=== PATIENT | male | born 2000 | race Hispanic/Latino ===

== ENCOUNTER 2024-01-14 20:36 | Observation (INO) | payer BC, OTHER ==
[2024-01-14] MEDS ORDERED: FAMOTIDINE 20 MG/2 ML VIAL IV ONE (21:05)
[2024-01-14] MEDS ORDERED: ONDANSETRON 4 MG/2 ML VIAL ONE (21:05)
[2024-01-14] MEDS ORDERED: NA CHLORIDE 0.9% 1,000 ML ONE (21:05)
[2024-01-14 21:25] LABS: Absolute Basophils 0.1 K/uL (0-0.5); Absolute Eosinophils 0.1 K/uL (0-0.5); Absolute Lymphocytes (CBC) 1.5 K/uL (0.7-4.9); Absolute Monocytes 0.5 K/uL (0.1-1.3); Basophils % 0.8 % (0-1.3); Eosinophils % 0.9 % (0-4.4); Hematocrit 45.9 % (39.6-49.0); Hemoglobin 15.9 g/dL (13.6-17.9); Lymphocytes % 13.2 % (15.3-44.8); MCH 30.3 pg (27.0-35.0); MCHC 34.7 g/dL (32.0-36.0); MCV 87.3 fL (80-100); Monocytes % 4.1 % (3.3-12.3); Nucleated Red Blood Cells % 0.1 % (0-0); Platelets 234 thou/uL (152-406); RBC Red Blood Cell Count 5.26 M/uL (4.33-5.43)
[2024-01-14 21:26] LABS: Sqamous Epithelial <5 /HPF (None Seen); Urine Bacteria None Seen /HPF (<20); Urine Bilirubin NEGATIVE (Negative); Urine Blood Negative (Negative); Urine Clarity Clear (Clear); Urine Color Yellow (Yellow); Urine Culture Reflex Order NOT NEEDED; Urine Glucose NEGATIVE (Negative); Urine Ketones NEGATIVE (Negative); Urine Microscopic Reflex YN ORDER UMIC; Urine Mucus 2+ /HPF (None Seen); Urine Nitrite NEGATIVE (Negative); Urine Protein TRACE (Negative); Urine RBC <5 /HPF (None Seen); Urine Urobilinogen Normal (Normal); Urine WBC <5 /HPF (<5); Urine pH 6.5 (5.0-7.0)
[2024-01-14] MEDS ORDERED: KETOROLAC 30 MG/ML INJ ONE (21:35)
[2024-01-14 21:36] LABS: SARS-CoV-2 Antigen CONTROL BLUE LINE VIS/BG OK; SARS-CoV-2 Antigen Rapid Res Negative (Negative)
[2024-01-14] MEDS ORDERED: MORPHINE 4 MG/ML SYR ONE (21:36)
[2024-01-14 21:42] LABS: Albumin 4.3 g/dL (3.4-5.0); Albumin/Globulin Ratio 1.1 (1.1-1.8); Anion Gap 9.5 mEq/L (5.0-15.0); Bilirubin Total 0.5 mg/dL (0.2-1.0); Globulin 3.9 g/dL (2.3-3.5); Potassium 3.5 mEq/L (3.5-5.1); Protein, Total 8.2 g/dL (6.4-8.2)
--- NOTE | 2024-01-14 22:20 | RAD REPORT ---
EXAM DESCRIPTION: CT - Abdomen Pelvis W Contrast - 01/14/2024 9:51 pm CLINICAL HISTORY: Right lower abdominal pain COMPARISON: No comparisons TECHNIQUE: Thin cut axial CT imaging of the abdomen and pelvis was performed following intravenous a dministration of 95 mL Isovue 300. Multiplanar reformats were generated and reviewed. All CT scans are performed using dose optimization technique as appropriate and may include automated exposure control or mA/KV adjustment according to patient size. FINDINGS: No suspicious findings in the lung bases. The liver, spleen, adrenal glands, and pancreas show no suspicious findings. Gallbladder and biliary tree are also without suspicious finding. Symmetric renal function is seen with no hydronephrosis or suspicious renal mass. No dilated bowel loops. Loop of bowel containing hyperdense material measuring 1.3 cm in greatest mary iber is present in the right lower quadrant, possibly connected to the base of the appendix, demonstr ating mild adjacent fat stranding anteriorly, as best appreciated on axial image 53. No free air, chandni e fluid or inflammatory stranding. No hernia, mass or bulky lymphadenopathy. The urinary bladder is d ecompressed limiting evaluation. No suspicious bony findings. IMPRESSION: Mild inflammatory changes along a small local bowel in the right lower quadrant containi ng hyperdense material, possibly early acute appendicitis with numerous appendicoliths. The findings were communicated to Meaghan Rodriguez on 01/14/2024 at 22:17 hours.
--- NOTE | 2024-01-14 22:44 | ER ---
Nurse's Notes [facility] Name: Andrea Desouza Age: 23 yrs Sex: Male : 2000 Arrival Date: 01/14/2024 Time: 20:36 Bed 13 Private MD: Otoniel Naidu Diagnosis: Unspecified acute appendicitis Presentation: 01/13 20:53 Chief complaint: Patient states: Pt c/o "upset stomach" all day. Pt states he developed tl4 low abdominal pain and vomiting at approx 1600 that has gotten progressively worse. Pt denies fever/chills. Coronavirus screen: At this time, the client does not indicate any symptoms associated with coronavirus-19. Ebola Screen: No symptoms or risks identified at this time. Initial Sepsis Screen: Does the patient meet any 2 criteria? No. Patient's initial sepsis screen is negative. Does the patient have a suspected source of infection? No. Patient's initial sepsis screen is negative. Risk Assessment: Do you want to hurt yourself or someone else? Patient reports no desire to harm self or others. Onset of symptoms was January 14, 2024 at 08:00. 20:53 Method Of Arrival: Ambulatory tl4 20:53 Acuity: DIAMOND 3 tl4 Triage Assessment: 20:57 General: Appears uncomfortable, Behavior is cooperative. Pain: Complains of pain in tl4 abdomen. EENT: No deficits noted. No signs and/or symptoms were reported regarding the EENT system. Neuro: No deficits noted. Cardiovascular: Capillary refill < 3 seconds Patient's skin is warm and dry. Respiratory: Denies cough, shortness of breath. GI: Pt is actively vomiting Reports nausea, vomiting. : No deficits noted. No signs and/or symptoms were reported regarding the genitourinary system. Derm: No deficits noted. No signs and/or symptoms reported regarding the dermatologic system. Musculoskeletal: No deficits noted. No signs and/or symptoms reported regarding the musculoskeletal system. Historical: - Allergies: 20:56 No Known Allergies; tl4 - Home Meds: 20:56 None [Active]; tl4 - PMHx: 20:56 None; tl4 - PSHx: 20:56 knee surgery; finger surgery; Adenoid excision; tl4 - Immunization history:: Adult Immunizations unknown. - Social history:: Smoking status: Reported history of juuling and/or vaping. - Family history:: not pertinent. Screenin:13 [facility] ED Fall Risk Assessment (Adult) History of falling in the last 3 months, rv including since admission No falls in past 3 months (0 pts) Score/Fall Risk Level 0 - 2 = Low Risk Oriented to surroundings, Maintained a safe environment, Educated pt \\T\\ family on fall prevention, incl call for assistance when getting out of bed, Assessed \\T\\ reinforced patient's understanding of fall precautions. Abuse screen: Denies threats or abuse. Denies injuries from another. Nutritional screening: No deficits noted. Tuberculosis screening: No symptoms or risk factors identified. Assessment: 21:13 General: Appears comfortable, Behavior is calm, cooperative. Pain: Complains of pain in rv abdomen. Neuro: Level of Consciousness is awake, alert, obeys commands, Oriented to person, place, time, situation. Cardiovascular: Capillary refill < 3 seconds Patient's skin is warm and dry. Respiratory: Airway is patent Respiratory effort is even, unlabored. GI: Bowel sounds present X 4 quads. Abd is soft and non tender X 4 quads. Reports upper abdominal pain, nausea, vomiting. Derm: Skin is intact. Vital Signs: 20:53 BP 142 / 92; Pulse 71; Resp 18; Temp 98.6(TE); Pulse Ox 100% ; Weight 99.79 kg; Height tl4 5 ft. 10 in. ; Pain 7/10; 01/14 00:58 BP 121 / 76; Pulse 112; Resp 18; Temp 98; Pulse Ox 99% ; rv 01/13 20:53 Body Mass Index 31.57 (99.79 kg, 177.8 cm) tl4 01/13 20:53 Pain Scale: Adult tl4 Annette Coma Score: 00:58 Eye Response: spontaneous(4). Motor Response: obeys commands(6). Verbal Response: rv oriented(5). Total: 15. 20:47 Eye Response: spontaneous(4). Motor Response: obeys commands(6). Verbal Response: sp4 oriented(5). Total: 15. ED Course: 01/13 20:40 Patient arrived in ED. mr 20:40 Otoniel Naidu MD is Private Physician. mr 20:41 Sree Gomez MD is Attending Physician. sp4 20:56 Triage completed. tl4 20:58 Arm band placed on right wrist. tl4 21:13 Hany Terrell, RN is Primary Nurse. rv 21:13 Patient has correct armband on for positive identification. Client placed on continuous rv cardiac and pulse oximetry monitoring. NIBP monitoring applied. 21:13 No provider procedures requiring assistance completed. rv 21:20 SARS RAPID Sent. kd3 21:20 Inserted saline lock: 20 gauge in right antecubital area, using aseptic technique. kd3 Blood collected. 21:20 Influenza Screen (a \\T\\ B) Sent. kd3 21:22 CBC with Diff Sent. kd3 21:22 CMP Sent. kd3 21:22 Lipase Sent. kd3 21:22 Urinalysis w/ reflexes Sent. kd3 21:22 Initial lab(s) drawn, by me, sent to lab. Urine collected: clean catch specimen, clear. kd3 21:22 COVID swab sent to lab. Flu and/or RSV swab sent to lab. kd3 21:52 CT Abd/Pelvis - IV Contrast Only In Process Unspecified. EDMS 22:43 Doug Fang MD is Hospitalizing Provider. sp4 01/14 00:59 Patient admitted, IV remains in place. rv Administered Medications: 01/13 21:20 Drug: Famotidine IVP 20 mg IVP once; dilute with 10 mL 0.9% NaCl; give over 2 minutes kd3 Route: IVP; Site: right antecubital; 21:22 Drug: NS 0.9% IV 1000 ml IV at 1 bolus Per protocol; 1000 mL bolus Route: IV; Rate: 1 kd3 bolus; Site: right antecubital; 21:22 Drug: Ondansetron IVP 4 mg IVP once; over 2 minutes Route: IVP; Site: right antecubital;kd3 21:40 Drug: Ketorolac IVP 30 mg IVP once Route: IVP; Site: right antecubital; rv 01/14 00:59 Follow up: Response: No adverse reaction; Marked relief of symptoms rv 01/13 21:41 Drug: morphine IVP or IV 8 mg IVP once over 4 mins Route: IVP; Infused Over: 4 mins; rv Site: right antecubital; 01/14 01:00 Follow up: Response: No adverse reaction; Marked relief of symptoms rv 01/13 23:09 Drug: Piperacillin-Tazobactam IVPB 3.375 grams IVPB once over 60 mins; (mix in NS 100 rv mL) Route: IVPB; Infused Over: 60 mins; Site: right antecubital; 23:51 Follow up: Response: No adverse reaction; IV Status: Completed infusion; IV Intake: rv 100ml 23:44 Drug: D5-1/2 NS with KCl IV 20 mEq/L 1000 ml IV at 125 ml/hr continuous Route: IV; rv Rate: 125 ml/hr; Site: right antecubital; 01/14 00:59 Follow up: IV Status: Infusion continued upon admission rv Medication: 01/13 21:13 VIS not applicable for this client. rv Intake: 23:51 IV: 100ml; Total: 100ml. rv Outcome: 22:43 Decision to Hospitalize by Provider. sp4 01/14 00:58 Admitted to Tele accompanied by tech, via wheelchair, room 430, Report called to rv admission papers, sbar, faxed to Claudia LAWSON. Condition: good Instructed on the need for admit, 01:00 Patient left the ED. rv Signatures: Dispatcher [employer] EDVT SilverSwati barragan, Reg Reg mr Hany Terrell RN RN rv Nicky Verduzco, RN RN kd3 Sree Gomez MD MD sp4 Tyler Steward RN RN tl4
--- NOTE | 2024-01-14 22:44 | EDPHYS ---
Physician Documentation [facility] Name: Andrea Desouza Age: 23 yrs Sex: Male : 2000 Arrival Date: 01/14/2024 Time: 20:36 Bed 13 Private MD: Otoniel Naidu ED Physician Sree Gomez HPI: 01/13 20:41 This 23 yrs old Male presents to ER via Unassigned with complaints of sp4 Abdominal Pain, Vomiting/Diarrhea. 01/14 20:47 23-year-old male presents for lower abdominal pain nausea vomiting diarrhea starting sp4 acutely today.. Historical: - Allergies: 01/13 20:56 No Known Allergies; tl4 - Home Meds: 20:56 None [Active]; tl4 - PMHx: 20:56 None; tl4 - PSHx: 20:56 knee surgery; finger surgery; Adenoid excision; tl4 - Immunization history:: Adult Immunizations unknown. - Social history:: Smoking status: Reported history of juuling and/or vaping. - Family history:: not pertinent. ROS: 01/14 20:47 Constitutional: Negative for fever, chills, and weight loss, positive nausea, positive sp4 vomiting, positive diarrhea, positive abdominal pain All other systems are negative, Exam: 20:47 Constitutional: This is a well developed, well nourished patient who is awake, alert, sp4 and in no acute distress. Head/Face: Normocephalic, atraumatic. Eyes: Pupils equal round and reactive to light, extra-ocular motions intact. Lids and lashes normal. Conjunctiva and sclera are not injected. Cornea within normal limits. Periorbital areas with no swelling, redness, or edema. ENT: Nares patent. No nasal discharge, no septal abnormalities noted. Tympanic membranes are normal and external auditory canals are clear. Oropharynx with no redness, swelling, or masses, exudates, or evidence of obstruction, uvula midline. Mucous membranes moist. Neck: Trachea midline, no thyromegaly or masses palpated, and no cervical lymphadenopathy. Supple, full range of motion without nuchal rigidity, or vertebral point tenderness. Chest/axilla: Normal chest wall appearance and motion. Nontender with no deformity. No lesions are appreciated. Cardiovascular: Regular rate and rhythm with a normal S1 and S2. No gallops, murmurs, or rubs. Normal PMI, no JVD. No pulse deficits. Respiratory: Lungs have equal breath sounds bilaterally, clear to auscultation and percussion. No rales, rhonchi or wheezes noted. No increased work of breathing, no retractions or nasal flaring. Abdomen/GI: Soft, with normal bowel sounds. No distension or tympany. Positive guarding and positive rebound the right lower abdominal quadrant. Positive tenderness right lower quadrant Back: No spinal tenderness. No costovertebral tenderness. Skin: Warm, dry with normal turgor. Normal color with no rashes, no lesions, and no evidence of cellulitis. MS/ Extremity: Pulses equal, no cyanosis. Neurovascular intact. Full, normal range of motion. Neuro: Awake and alert, GCS 15, oriented to person, place, time, and situation. Cranial nerves II-XII grossly intact. Motor strength 5/5 in all extremities. Sensory grossly intact. Psych: Awake, alert, with orientation to person, place and time. Behavior, mood, and affect are within normal limits Vital Signs: 01/13 20:53 BP 142 / 92; Pulse 71; Resp 18; Temp 98.6(TE); Pulse Ox 100% ; Weight 99.79 kg; Height tl4 5 ft. 10 in. ; Pain 7/10; 01/14 00:58 BP 121 / 76; Pulse 112; Resp 18; Temp 98; Pulse Ox 99% ; rv 01/13 20:53 Body Mass Index 31.57 (99.79 kg, 177.8 cm) tl4 01/13 20:53 Pain Scale: Adult tl4 [facility] Coma Score: 00:58 Eye Response: spontaneous(4). Motor Response: obeys commands(6). Verbal Response: rv oriented(5). Total: 15. 20:47 Eye Response: spontaneous(4). Motor Response: obeys commands(6). Verbal Response: sp4 oriented(5). Total: 15. MDM: 01/13 20:42 Patient medically screened. sp4 01/14 20:47 Differential diagnosis: Nonspecific abd pain, gastritis, cholecystitis, pancreatitis, sp4 appendicitis. Data reviewed: vital signs, nurses notes, old medical records, lab test result(s), radiologic studies, CT scan. 20:50 ED course: EXAM DESCRIPTION: CT - Abdomen Pelvis W Contrast - 01/14/2024 9:51 pm sp4 CLINICAL HISTORY: Right lower abdominal pain COMPARISON: No comparisons TECHNIQUE: Thin cut axial CT imaging of the abdomen and pelvis was performed following intravenous administration of 95 mL Isovue 300. Multiplanar reformats were generated and reviewed. All CT scans are performed using dose optimization technique as appropriate and may include automated exposure control or mA/KV adjustment according to patient size. FINDINGS: No suspicious findings in the lung bases. The liver, spleen, adrenal glands, and pancreas show no suspicious findings. Gallbladder and biliary tree are also without suspicious finding. Symmetric renal function is seen with no hydronephrosis or suspicious renal mass. No dilated bowel loops. Loop of bowel containing hyperdense material measuring 1.3 cm in greatest caliber is present in the right lower quadrant, possibly connected to the base of the appendix, d emonstrating mild adjacent fat stranding anteriorly, as best appreciated on axial image 53. No free air, free fluid or inflammatory stranding. No hernia, mass or bulky lymphadenopathy. The urinary bladder is decompressed limiting evaluation. No suspicious bony findings. IMPRESSION: Mild inflammatory changes along a small local bowel in the right lower quadrant containing hyperdense material, possibly early acute appendicitis with numerous appendicoliths. The findings were communicated to Meaghan Rodriguez on 01/14/2024 at 22:17 hours.. 20:50 ED course: Patient was admitted in stable condition for evaluation for abdominal sp4 surgery. 01/13 20:54 Order name: CBC with Diff; Complete Time: 22:39 [facility] 01/13 20:54 Order name: CMP; Complete Time: 22:39 [facility] 01/13 20:54 Order name: Lipase; Complete Time: 22:39 4 01/13 20:54 Order name: Urinalysis w/ reflexes; Complete Time: 22:39 [facility] 01/13 20:54 Order name: Influenza Screen (a \T\ B); Complete Time: 22:39 [facility] 01/13 20:54 Order name: SARS RAPID; Complete Time: 22:39 [facility] 01/13 21:28 Order name: CT Abd/Pelvis - IV Contrast Only; Complete Time: 22:39 [facility] 01/13 20:54 Order name: IV Saline Lock; Complete Time: 21:14 [facility] 01/13 20:54 Order name: Labs collected and sent; Complete Time: 21:14 sp4 01/13 22:39 Order name: NPO; Complete Time: 22:50 sp4 Administered Medications: 01/13 21:20 Drug: Famotidine IVP 20 mg IVP once; dilute with 10 mL 0.9% NaCl; give over 2 minutes kd3 Route: IVP; Site: right antecubital; 21:22 Drug: NS 0.9% IV 1000 ml IV at 1 bolus Per protocol; 1000 mL bolus Route: IV; Rate: 1 kd3 bolus; Site: right antecubital; 21:22 Drug: Ondansetron IVP 4 mg IVP once; over 2 minutes Route: IVP; Site: right antecubital;kd3 21:40 Drug: Ketorolac IVP 30 mg IVP once Route: IVP; Site: right antecubital; rv 01/14 00:59 Follow up: Response: No adverse reaction; Marked relief of symptoms rv 01/13 21:41 Drug: morphine IVP or IV 8 mg IVP once over 4 mins Route: IVP; Infused Over: 4 mins; rv Site: right antecubital; 01/14 01:00 Follow up: Response: No adverse reaction; Marked relief of symptoms rv 01/13 23:09 Drug: Piperacillin-Tazobactam IVPB 3.375 grams IVPB once over 60 mins; (mix in NS 100 rv mL) Route: IVPB; Infused Over: 60 mins; Site: right antecubital; 23:51 Follow up: Response: No adverse reaction; IV Status: Completed infusion; IV Intake: rv 100ml 23:44 Drug: D5-1/2 NS with KCl IV 20 mEq/L 1000 ml IV at 125 ml/hr continuous Route: IV; rv Rate: 125 ml/hr; Site: right antecubital; 01/14 00:59 Follow up: IV Status: Infusion continued upon admission rv Disposition Summary: 01/14/24 22:43 Hospitalization Ordered Notes: Hospitalization Status: Observation sp4 Provider: Doug Fang sp4 Location: Telemetry/MedSur (observation) sp4 Condition: Stable sp4 Problem: new sp4 Symptoms: have improved sp4 Bed/Room Type: Standard sp4 Room Assignment: 430(01/14/24 23:06) cg Diagnosis - Unspecified acute appendicitis sp4 Forms: - Medication Reconciliation Form sp4 - SBAR form sp4 - Leadership Thank You Letter sp4 Signatures: Dispatcher [employer] Liberty Lynch, RN RN cg Hany Terrell RN RN rv Doucette, Kyli, RN RN kd3 Sree Gomez MD MD sp4 Tyler Steward RN RN tl4 Corrections: (The following items were deleted from the chart) 01/13 23:06 22:43 sp4
[2024-01-14] MEDS ORDERED: PIPERACIL/TAZO 3.375 GM VIAL IV ONE (22:54)
[2024-01-14] MEDS ORDERED: NA CHLORIDE 0.9% 100 ML ONE (22:54)
[2024-01-14] MEDS ORDERED: D5.45NS W/KCL 20MEQ 1,000 ML IV ONE (22:54)
[2024-01-15] MEDS ORDERED: ALBUTEROL 2.5 MG/3 ML NEB SOL NEB PRN (01:09)
[2024-01-15] MEDS: MORPHINE 4 MG/ML SYR IV PRN (01:41)
[2024-01-15] MEDS: ONDANSETRON 4 MG/2 ML VIAL IV PRN (01:41)
[2024-01-15 02:10] VITALS: BMI 31.5
--- NOTE | 2024-01-15 09:52 | PREOPHP ---
Date of Admission: 01/15/2024 Chief Complaint: Abdominal pain. History Of Present Illness: The patient is a 23-year-old gentleman who presented to the emergency ro om with acute onset of diffuse lower abdominal pain, mostly on the right side, associated with nausea , vomiting, diarrhea, and anorexia. Denies any fever or chills. No sore throat, runny nose, cough, headaches, or dizziness. No chest pain. No blood in his stool. No dysuria or hematuria. Review of Systems: Otherwise unremarkable. Past Medical History: Negative. Past Surgical History: Adenoidectomy and knee surgery as well as a hand surgery. Allergies: NONE. Social History: The patient does not smoke, but does vape and drinks occasionally. Family History: Noncontributory. Physical Examination: Vital Signs: Stable. He is afebrile. General: He is awake, alert, oriented x3. Head and Neck: Cranial nerves 2 through 12 are grossly within normal limits. No neck masses. No JV D. Throat clear. Neck is supple. Chest: Clear. Heart: S1, S2. Abdomen: Soft, nondistended. Positive bowel sounds. Minimal discomfort in the right lower quadrant , but absolutely no peritonitis. Extremities: Adequately perfused, nontender. Neuro: Nonfocal. Laboratory Data: White count on admission was 11.1 with slight left shift. Chemistry reviewed, unre markable and CT of the abdomen and pelvis shows a 13 mm appendix with multiple appendicoliths and yin y minimal stranding. Assessment: Abdominal pain, early acute appendicitis and multiple appendicoliths in a young patient. Recommendations: Considering the patient's age and symptomology, I think it is prudent to go ahead a nd remove the appendix at this time, as this will become a recurrent issue with this patient with mul tiple appendicoliths that the patient has. The risks, benefits, and alternatives explained to the pa tient. He understands and agrees and the plan of care discussed with the mother as well. IV antibio tics as ordered. /MODL Voice ID: [id number]
[2024-01-15] MEDS: Ringers Lactate 1,000 ML IV ONE (10:21)
[2024-01-15] MEDS: SCOPOLAMINE HYDROBROMIDE PATCH TD ONE (10:40)
[2024-01-15] MEDS ORDERED: SUCCINYLCHOLINE 20 MG/ML (10 ML) IV ONE (11:02)
[2024-01-15] MEDS ORDERED: ROCURONIUM 50 MG/5 ML VIAL IV ONE (11:06)
[2024-01-15] MEDS ORDERED: MIDAZOLAM HCL 2 MG/2 ML INJ ONE (11:06)
[2024-01-15] MEDS ORDERED: propofoL 200 MG/20 ML VIAL IV ONE (11:06)
[2024-01-15] MEDS ORDERED: FENTANYL CITR 100 MCG/2 ML ONE (11:06)
[2024-01-15] MEDS: PIPER TAZO 3.375 GM in NA CHLORIDE 0.9% 100 ML IV ONE (11:28)
[2024-01-15] MEDS ORDERED: ONDANSETRON 4 MG/2 ML VIAL ONE ×2 (11:38→11:55)
[2024-01-15] MEDS ORDERED: dexAMETHasone 10 MG/ML VIAL ONE (11:38)
[2024-01-15] MEDS: BUPIVACAINE 0.5% PF 10 ML VIAL ONE (11:46)
[2024-01-15] MEDS ORDERED: NEOSTIGMINE 1 MG/ML -10 ML VIAL ONE ×2 (12:07→12:08)
[2024-01-15] MEDS ORDERED: GLYCOPYRROLATE 0.2 MG/ML SYR ONE ×2 (12:07)
--- NOTE | 2024-01-15 12:14 | P.OP ---
Date of Service: 01/15/24 Preop diagnosis: Acute appendicitis, appendicolith and abdominal pain Postop diagnosis: Same Procedure performed: Laparoscopic appendectomy Surgeon: Doug Fang MD Machine Shop Lead Man: Astrid CAMPOS Estimated blood loss: Minimal Specimen: Appendix Findings: As above Anesthesia: General Complications: None Drains: None Fluids and blood products: Nonapplicable Disposition: Recovery room Operative note: Patient brought to the OR and placed in the supine position. General anesthesia began. Patient prepped and draped in the usual sterile fashion. Marcaine 0.5% infiltrated locally for postop pain control. 2 cm supraumbilical midline incision made. Subcutaneous tissue divided and bleeding controlled cautery. Fascia identified and divided. #1 Vicryl stay suture placed. Peritoneal cavity entered with sharp and blunt dissection. 12 mm trocar placed into the peritoneal cavity under direct vision. Pneumoperitoneum established. Two 5 mm trocars placed under direct vision. 1 trocar placed in the suprapubic region and another 1 in the left lower quadrant. Laparoscopy revealed dilated appendix with injected blood vessel consistent with acute appendicitis. Mesoappendix and base of the appendix and the cecum clearly identified. LigaSure and endovascular instrument utilized in the standard fashion. The appendix retrieved to the umbilicus via Endo Catch bag. Right lower quadrant irrigated and effluent clear. No evidence of bleeding or bowel injury appreciated. Subsequently, all trocars removed under direct vision. Stay sutures tied to each other to reapproximate the fascial defect. Subcutaneous wounds irrigated and bleeding controlled with cautery. 3-0 chromic used to approximate subcutaneous tissue and close skin. Sterile dressing applied. Patient awakened and taken to recovery room in good general condition. CC:
[2024-01-15] MEDS ORDERED: HYDROMORPHONE HCL 1 MG/ML INJ IV PRN (12:18)
[2024-01-15] MEDS ORDERED: PHENOL 1.4% ORAL SPRAY 180ML MM PRN (12:18)
[2024-01-15] MEDS: HYDROMORPHONE HCL 1 MG/ML INJ ONE (12:37)
[2024-01-15] MEDS: Ringers Lactate 1,000 ML IV SCH (13:10)
[2024-01-15] MEDS: PIPER TAZO 3.375 GM in NA CHLORIDE 0.9% 100 ML IV SCH (16:50)
[2024-01-15] MEDS: HYDROCODONE/APAP 7.5/325 MG TAB PO PRN (19:36)
[2024-01-16 03:54] LABS: Absolute Lymphocytes (CBC) 0.4 K/uL (0.7-4.9); Absolute Monocytes 0.4 K/uL (0.1-1.3); Absolute Neutrophil 6.9 K/uL (1.8-8.0); Basophils % 0.1 % (0-1.3); Hematocrit 39.5 % (39.6-49.0); Hemoglobin 13.8 g/dL (13.6-17.9); Lymphocytes % 5.7 % (15.3-44.8); MCH 30.9 pg (27.0-35.0); MCV 88.1 fL (80-100); MPV 8.1 fL (7.6-11.3); Monocytes % 5.1 % (3.3-12.3); Neutrophils % 89.1 % (41.7-73.7); Nucleated Red Blood Cells % 0.1 % (0-0); Platelets 189 thou/uL (152-406); RBC Red Blood Cell Count 4.48 M/uL (4.33-5.43); Red Cell Distribution Width 12.5 % (12.1-15.2)
[2024-01-16 06:45] VITALS: BP 112/53; TEMP 97.9
--- NOTE | 2024-01-16 09:55 | DS ---
Date of Discharge: 01/16/2024 Admitting Diagnosis: Acute appendicitis. Discharge Diagnosis: Acute appendicitis with appendicolith. Procedure Performed: Laparoscopic appendectomy. Hospital Course: The patient is a 23-year-old gentleman underwent the aforementioned procedure. Pos toperatively, he is tolerating diet, ambulating, pain controlled with p.o. pain medication, afebrile. White count is normal, therefore patient will be discharged to home. Disposition: Home. Condition: Stable. Discharge Instructions: Resume home medications and diet. Activity as tolerated. No heavy lifting. Remove outer dressing in a.m. and shower. Keep wound clean and dry. Keep Steri-Strips on at all t imes. [place] 7.5, Colace and Augmentin called in. The patient's pharmacy and incentive spirometry is directed. /MODL Voice ID: [id number] Report ID: [id number]
[2024-01-16 10:28] VITALS: O2SAT 97
== END 2024-01-16 10:18 | disposition home or self-care (01) ==
LOC: ER 20:36 → 4TH 01-15 00:44
PROVIDERS: ADMIT Surgery; ATTEND Surgery
PROC: 0DTJ4ZZ Resection of Appendix, Percutaneous Endoscopic Approach (ICD-10-PCS; principal; 2024-01-15 11:00)
DX: K35.80 Unspecified acute appendicitis (principal); F17.290 Nicotine dependence, other tobacco product, uncomplicated; Z11.52 Encounter for screening for COVID-19
CPT/HCPCS: 85025 ×2; 81001; 36415 ×2; 83690; 80053; 87804 ×2; 74177; 87811; 44970; Q9967; J2704; J2710 ×2; J2543 ×5; J2250; J3010; J1100; J1170; J2405 ×5; J7120 ×3; J7030; 88304; 96361; 96365; 96375; 99285; G0378